=== PATIENT | female | born 1975 | race Caucasian/White ===

== ENCOUNTER 2025-05-26 06:44 | Day surgery (SDC) | payer BC, SELFPAY ==
[2025-05-26 15:07] VITALS: BMI 25.1
[2025-05-26 15:09] VITALS: BMI 25.1
[2025-05-26 15:10] VITALS: BP 122/81
[2025-05-26] MEDS: NORMOSOL-R/PLASMALYTE-A 1000 IV (15:22)
[2025-05-26 18:22] VITALS: BP 113/57
[2025-05-26 18:30] VITALS: BP 114/60
[2025-05-26 18:45] VITALS: BP 119/65
[2025-05-26 19:00] VITALS: BP 120/71
== END 2025-05-26 19:15 | disposition home or self-care (01) ==
LOC: SDS 06:44
PROVIDERS: ATTENDING PHYSICIAN Surgery
DX: C21.0 Malignant neoplasm of anus, unspecified (principal)
CPT/HCPCS: 45990; 46606; 88305; 88342; 93005